=== PATIENT | female | born 1935 | race Caucasian/White ===

== ENCOUNTER 2018-07-22 07:27 | Emergency (ER) | payer MEDICARE ==
[2018-07-22] MEDS ORDERED: NS 0.9% 1000 ML** 1,000 ML IV ONE (07:30)
--- NOTE | 2018-07-22 07:50 | ED ---
Skin Complaint - HPI Summary HPI Summary: This patient is a 81 year old female brought in by ambulance to [facility] with a chief complaint of rash with numbness, as well as palpitations since several days ago. Patient states she developed a rash on both forearms. Patient states that she intermittently feels tingling near the area with the rash, as well as numbness. Patient denies any pain. The pain is rated 0/10 in severity. Symptoms aggravated by nothing. Symptoms alleviated by nothing. Patient additionally notes palpitations where her heart feels fast and irregular. Patient denies nausea, vomiting, urinary symptom. In ED, patient is asymptomatic Manual BP of 132/92 - History of Current Complaint Time Seen by Provider: 07/22/18 07:29 Stated Complaint: RASH PER EMS Hx Obtained From: Patient Onset/Duration: Started Days Ago, Resolved Timing: Intermittent Onset Severity: Moderate Current Severity: None Pain Intensity: 0 Pain Scale Used: 0-10 Numeric Skin Location: Arm Character: Redness Aggravating Symptom(s): Nothing Alleviating Symptom(s): Nothing Associated Signs & Symptoms: Negative - nausea, vomiting, urinary symptom - Allergy/Home Medications Allergies/Adverse Reactions: Allergies Allergy/AdvReac Type Severity Reaction Status Date / Time No Known Allergies Allergy Verified 06/29/15 11:34 PMH/Surg Hx/FS Hx/Imm Hx Previously Healthy: No Cardiovascular History: Reports: Hx Hypertension Sensory History: Reports: Hx Cataracts EENT History: Denies: Hx Deafness - Cancer History Hx Chemotherapy: No Hx Radiation Therapy: No Infectious Disease History: No Infectious Disease History: Denies: Traveled Outside the [place] in Last 30 Days - Family History Known Family History: Positive: Hypertension - Social History Alcohol Use: None Hx Substance Use: No Substance Use Type: Reports: None Smoking Status (MU): Never Smoked Tobacco Review of Systems Negative: Fever Positive: Palpitations Negative: Vomiting, Nausea Positive: no symptoms reported Positive: Rash All Other Systems Reviewed And Are Negative: Yes Physical Exam - Summary Physical Exam Summary: Appearance: well appearing, no pain distress Skin: warm, dry, reflects adequate perfusion. Stress petechiae below cuff line on left upper extremity Head/face: normal Eyes: Left eye cataract ENT: mucous membranes moist Neck: supple, non-tender Respiratory: CTA, breath sounds present Cardiovascular: RRR, pulses symmetrical Abdomen: non-tender, soft Bowel Sounds: present Musculoskeletal: normal, strength/ROM intact Neuro: normal, sensory motor intact, A&Ox3 Triage Information Reviewed: Yes Vital Signs On Initial Exam: Initial Vitals Temp Pulse Resp BP Pulse Ox 98.5 F 73 14 180/96 95 07/22/18 07:34 07/22/18 07:34 07/22/18 07:34 07/22/18 07:34 07/22/18 07:34 Vital Signs Reviewed: Yes Diagnostics - Vital Signs Vital Signs Temp Pulse Resp BP Pulse Ox 07/22/18 07:34 98.5 F 73 14 180/96 95 - Laboratory Result Diagrams: 07/22/18 07:48 07/22/18 07:48 Lab Statement: Any lab studies that have been ordered have been reviewed, and results considered in the medical decision making process. - Radiology CXR Radiology Interpretation Completed By: Radiologist Summary of Radiographic Findings: CXR reveals, per radiologist, IMPRESSION: NO ACTIVE CARDIOPULMONARY DISEASE. ED physician has reviewed this radiology report. - EKG 0738 Cardiac Rate: NL EKG Rhythm: Sinus Rhythm - 69 BPM Summary of EKG Findings: An EKG, taken 0738, reveals NSR (69 BPM), normal axis, normal intervals, normal ST Course/Dx - Course Course Of Treatment: Nurse's notes reviewed. Patient with tingling in her extremities but neurologically intact with a NIH stroke score of 0. Patient was found to have inflammatory cells in her urine consistent with possible UTI. IV Rocephin was given and she will be continued on Keflex. She was fully asymptomatic here and blood pressures were normal. EKG normal. Discharged to follow up primary care physician. - Differential Diagnoses - Skin Complaint Differential Diagnoses: Other - TIA, palpitations/A. fib, UTI, metabolic, dehydration - Diagnoses Provider Diagnoses: UTI (urinary tract infection), Tingling in extremities Discharge - Sign-Out/Discharge Documenting (check all that apply): Patient Departure Patient Received Moderate/Deep Sedation with Procedure: No - Discharge Plan Condition: Improved Disposition: HOME Prescriptions: Cephalexin CAP* [Keflex CAP*] 500 mg PO TID #15 cap Patient Education Materials: Urinary Tract Infection in Women (ED) Referrals: Brendan HAWKINS,Jessica [Medical Doctor] - Additional Instructions: Stay well-hydrated. Cranberry juice may help. Return with fever, vomiting, worse, new symptoms or other concerns. Call first thing Tuesday to follow up with your primary care physician. - Billing Disposition and Condition Condition: IMPROVED Disposition: Home - Attestation Statements Document Initiated by Mekhi: Yes Documenting Scribe: Kg Howard Provider For Whom Mekhi is Documenting (Include Credential): Juan Ramon Trent MD Scribdeisi Attestation: IKg, scribed for Juan Ramon Trent MD on 07/22/18 at 1024. Scribe Documentation Reviewed: Yes Provider Attestation: The documentation as recorded by the Kg franco accurately reflects the service I personally performed and the decisions made by me, Juan Ramon Trent MD Status of Scrduonge Document: Viewed
[2018-07-22 07:55] LABS: ABS Basophils 0 10^3/ul (0-0.2); ABS Eosinophils 0 10^3/ul (0-0.6); ABS Lymphocytes 1.5 10^3/ul (1.0-4.8); ABS Monocytes 0.4 10^3/ul (0-0.8); ABS Neutrophils 4.7 10^3/ul (1.5-7.7); ABS Nucleated RBC 0 10^3/ul; Eosinophil % 0.2 %; Hematocrit 43 % (33-41); Hemoglobin 14.8 g/dL (12.0-16.0); Lymphocyte % 23.1 %; Mean Corpuscular HGB Conc 34 g/dL (31-36); Mean Corpuscular Hemoglobin 32 pg (27-31); Mean Corpuscular Volume 93 fL (80-97); Mean Platelet Volume 8.8 fL (7.4-10.4); Nucleated Red Blood Cells % 0; Platelet Count 224 10^3/uL (150-450); Red Blood Count 4.65 10^6 /uL (3.70-4.87); Red Cell Distribution Width 13 % (10.5-15); White Blood Count 6.7 10^3/uL (3.5-10.8)
[2018-07-22 08:00] LABS: INR 1.07 (0.82-1.09)
[2018-07-22 08:13] LABS: Albumin 4.2 g/dL (3.2-5.2); BUN/Creatinine Ratio 19.8 (8-20); Calcium 9.6 mg/dL (8.6-10.3); EGFR African American 81.9 (>60); EGFR Non-African American 67.7 (>60); Magnesium 2.2 mg/dL (1.9-2.7); Potassium 4.1 mmol/L (3.5-5.0); Total Bilirubin 0.7 mg/dL (0.2-1.0)
[2018-07-22 08:57] LABS: Urine Appearance Cloudy; Urine Bacteria Absent (Absent); Urine Bilirubin Negative (Negative); Urine Blood Negative (Negative); Urine Color Yellow; Urine Glucose Negative (Negative); Urine Ketones Trace (Negative); Urine Nitrite Negative (Negative); Urine Protein Negative (Negative); Urine Red Blood Cell Absent (Absent); Urine Specific Gravity 1.011 (1.010-1.030); Urine Squamous Epithelial Cell Present (Absent); Urine Transitional Epithelial Present (Absent); Urine Urobilinogen Negative (Negative); Urine White Blood Cell 3+(>20/hpf) (Absent)
[2018-07-22 09:06] LABS: TSH (Thyroid Stimulating Horm) 1.43 mcIU/mL (0.34-5.60)
[2018-07-22 09:07] LABS: Albumin/Globulin Ratio 1.3 (1-3); Globulin 3.2 g/dL (2-4); Total Protein 7.4 g/dL (6.4-8.9)
[2018-07-22] MEDS ORDERED: cefTRIAXone(*) 1 GM in NS 0.9% 50 ML* 50 ML IVPB ONE (09:30)
[2018-07-22 10:39] VITALS: BP 152/80
== END 2018-07-22 10:38 | disposition home or self-care (01) ==
LOC: ED 07:27
DX: N39.0 Urinary tract infection, site not specified (principal); R20.2 Paresthesia of skin; I10 Essential (primary) hypertension
CPT/HCPCS: 36415; 71045; 80053; 81003; 81015; 83605; 83735; 83880; 84443; 84484; 85025; 85610; 87086; 93005; 96361; 96365; 99283; J0696